=== PATIENT | female | born 1940 | race Caucasian/White ===

== ENCOUNTER 2017-07-31 08:40 | Outpatient (CLI) | payer MEDICARE, BC ==
[~2017-07-31] VITALS: Ht 160 cm; Wt 56.8 kg
--- NOTE | ~2017-07-31 | OP ---
PATIENT NAME: JUVENAL NOLAN MEDICAL RECORD: [id number] :42 LOCATION:D.CAT ADMISSION DATE: SURGEON: NAREN PEREZ MD DATE OF OPERATION: 07/31/2017 PROCEDURES: 1. PTCA stent LAD. 2. Left heart catheterization. 3. Selective coronary angiography. 4. Left ventriculogram. INDICATION: Angina and coronary artery disease. PROCEDURE IN DETAIL: After informed consent was obtained and after detailed explanation of risks, benefits as well as alternative therapies, the patient elected to proceed with angiogram and angioplasty. The right femoral area is prepped and draped in normal sterile fashion. The right femoral artery was cannulated via modified Seldinger technique with placement of 6-Sri [place]ankan sheath. All catheters exchanged through this sheath. FINDINGS: The left ventriculogram was performed in the standard 30-degree QUINTANILLA view reveals good cardiac wall motion throughout all segments. Overall ejection fraction estimated at 60%. SELECTIVE CORONARY ANGIOGRAPHY: 1. Left main showed no significant angiographic disease. 2. Left anterior descending has an 80% stenosis throughout the proximal vessel. 3. Left circumflex shows moderate irregularities, but no flow-limiting stenosis. 4. Right coronary has moderate irregularities, but no flow-limiting stenosis throughout. PTCA STENT OF THE LAD: The stent used is a 3.0 x 22 mm Keith. Result was 0% residual stenosis. OVERALL IMPRESSION: Successful PTCA stent of the LAD going from 80% initial stenosis to 0% residual stenosis. TRANSINT:[id number] Voice Confirmation ID: [id number] DOCUMENT ID: [id number] NAREN PEREZ MD at 1140 CC: [id number] DICTATION DATE: 07/31/17 1145 WIRE SPINNER: 07/31/17 1245 DEP CLI 07/31/17 [place] [id number]
--- NOTE | ~2017-07-31 | HEMODYNAMI ---
PATIENT:JUVENAL NOLAN MEDICAL RECORD: [id number] : 42 LOCATION:D.CAT ADMISSION DATE: 07/31/17 Generatedon:07/31/201711:44 Patient name: JUVENAL AJIMES Patient #: [id number] S SN: : 1940 Date of study: 07/31/2017 Page: Of Hemodynamic Procedure Report Patient Data Patient Demographics Procedure consent was obtained First Name: JUVENAL Gender: Female Last Name: CAROL JAIMES : 1940 Patient #: [id number] Age: 76 year(s) Race: Unknown Additional ID: [id number] Contact details Address: [address] [place] [address] ROAD State: [place] City: [place] Zip code: [address] Past Medical History Allergies Allergen Reaction Date Comments Reported Other allergy 07/31/2017 PCN Admission Admission Data Admission Date: 07/31/2017 Admission Time: 8:40 Procedure Procedure Types Cath Procedure Diagnostic Procedure LHC LHC w/Coronaries PCI Procedure Coronary Stent Coronary Stent Initial Procedure Description Procedure Date Procedure Date: 07/31/2017 Procedure Start Time: 11:22 Procedure End Time: 11:39 Procedure Staff Name Function Priya Nicole RT Scrub Freddy Carcamo RN Nurse Nathaniel Mobley MD Performing Physician Melissa Danielson RT Monitor Procedure Data Cath Procedure Fluoroscopy Diagnostic fluoroscopy Total fluoroscopy Time: 3.2 time: 3.2 min min Diagnostic fluoroscopy Total fluoroscopy dose: 296 dose: 296 mGy mGy Contrast Material Contrast Material Type Amount (ml) Isovue 300 113 Isovue 300 113 Entry Location Entry Primary Successful Side Size Upsize Upsize Entry Closure Locke ccessful Closure Location (Fr) 1 (Fr) 2 (Fr) Remarks Device Remarks Radial Right 6 Fr Mechanical tr artery Short Compression Femoral Right 5 Fr 6 Fr Exoseal artery Short Estimated blood loss: 10 ml Diagnostic catheters Device Type Used For End Catheter Placement DIAGNOSTIC [place] 110cm 5 Procedure Fr catheter ([id number]) MULTIPACK Pigtail 5 Fr LV Angiography catheter MULTIPACK JL 4.0 5Fr Procedure catheter MULTIPACK 3DRC 5Fr Procedure catheter Procedure Complications No complications Procedure Medications Medication Administration Route Dosage Oxygen NC 2 l/min Lidocaine 2% added to field 20 Heparin Flush Bag added to field 2 bags (1000units/500ml NS) 0.9% NaCl I.V. 100 ml/hr Versed I.V. 1 mg Fentanyl I.V. 50 mcg Radial Cocktail added to field 1 syringe (Verapomil 2mg/Nitro 400mcg/Heparin 1500units) Versed I.V. 1 mg Fentanyl I.V. 50 mcg Heparin Bolus I.V. 4000 units Hemodynamics Rest Heart Rate: 69 (bpm) Snapshots Pre Cath Intra NCS Post Cath Vital Signs Time Heart Resp SPO2 etCO2 NIBP (mmHg) Rhythm Pain Sedation Rate (ipm) (%) (mmHg) Status Level (bpm) 11:02:32 77 18 94 0 149/64(123) NSR 0 (11) 10(A) , No pain 11:06:48 71 18 95 0 147/78(127) NSR 0 (11) 10(A) , No pain 11:11:06 71 16 96 0 115/64(95) NSR 0 (11) 10(A) , No pain 11:15:16 64 15 98 33.4 111/55(78) NSR 0 (11) 10(A) , No pain 11:19:22 65 15 98 37.9 114/61(92) NSR 0 (11) 10(A) , No pain 11:23:30 64 14 99 37.1 112/61(86) NSR 0 (11) 9(A) , No pain 11:27:40 67 15 95 35.6 88/54(64) NSR 0 (11) 9(A) , No pain 11:31:42 74 15 97 37.9 100/51(79) NSR 0 (11) 9(A) , No pain 11:35:45 71 16 97 33.4 96/58(75) NSR 0 (11) 9(A) , No pain 11:39:47 73 16 98 40.1 113/57(91) NSR 0 (11) 10(A) , No pain Medications Time Medication Route Dose Verified Delivered Reason Note s Effectiveness by by 11:11:19 Oxygen NC 2 l/min Nathaniel Buffie used for Leandra Carcamo RN procedure 11:11:31 Lidocaine 2% added 20ml Nathaniel Armstrong for local to vial Leandra Mobley MD anesthetic field 11:11:38 Heparin Flush added 2 bags Nathaniel Armstrong used for Bag to Leandra Mobley MD procedure (1000units/500ml field NS) 11:11:47 0.9% NaCl I.V. 100 Nathaniel Buffie Per physician ml/hr Leandra Carcamo RN 11:21:19 Versed I.V. 1 mg Nathaniel Buffie for sedation Leandra Carcamo RN 11:21:25 Fentanyl I.V. 50 mcg Nathaniel Buffie for sedation Leandra Carcamo RN 11:24:34 Radial Cocktail added 1 Nathanielsofi Armstrong for not (Verapomil to syringe Leandra Mobley MD vasodilation used, 2mg/Nitro field radial 400mcg/Hepari loop present 11:24:41 Versed I.V. 1 mg Nathaniel Stoddardie for sedation Leandra Carcamo RN 11:24:45 Fentanyl I.V. 50 mcg Nathaniel Hayes for sedation Leandra Carcamo RN 11:33:04 Heparin Bolus I.V. 4000 Nathaniel Buffie for veri fied units Leandra Carcamo RN anticoagulation with dr mobley Procedure Log Time Note 10:40:17 Melissa Danielson RT(R) sent for patient. Start room use. 10:52:45 Informed consent obtained and on chart 10:53:18 Time tracking: Regular hours 10:53:22 Plan of Care:Hemodynamics will remain stable., Cardiac rhythm will remain stable., Comfort level will be maintained., Respiratory function will remain adequate., Patient/ family verbilizes understanding of procedure., Procedure tolerated without complication., Recovers from procedure without complications.. 10:53:38 Patient received from Pre/Post Procedure Room to CCL 2 Alert and oriented. Tansferred to table in Supine position. 10:53:39 Correct patient and procedure confirmed by team. 10:53:39 Warm blankets applied, and toño hugger turned on for patient comfort. 10:53:40 ECG and BP/O2 sat monitors applied to patient. 11:01:19 Vital chart was started 11:05:25 Baseline sample Acquired. 11:05:29 Rhythm: sinus rhythm 11:05:31 Full Disclosure recording started 11:05:46 H&P Date Dictated: 07/03/2017 Within 30 days and on chart.. 11:05:48 Pre-procedure instructions explained to patient. 11:05:49 Family in waiting room. 11:05:51 Patient NPO since Midnight. 11:06:01 Patient allergic to Other allergyPCN 11:06:06 Was the patient premedicated? Yes 11:06:08 Is patient on blood thinner?Yes 11:06:11 ACC The patient was administered the following blood thiners within the last 24 hours: ACCPlavix 11:06:15 Patient diabetic? No. 11:06:19 Snore? No 11:06:21 Sleep apnea? No 11:06:28 Patient pain scale 0/10 ?. 11:06:35 IV patent on arrival in left antecubital with 0.9% NaCl at O. 11:06:49 Lab results completed and on chart. 11:06:54 Right Radial & Right Groin area was prepped with chlora-prep and draped in sterile fashion 11:06:55 Alarms reviewed by R. N. 11:06:56 Physician paged 11:06:56 Sharps counted by scrub and verified by R.N. 11:09:07 Use device set Radial Dx or PCI 11:11:19 Oxygen 2 l/min NC was administered by Freddy Carcamo RN; used for procedure; 11:11:31 Lidocaine 2% 20ml vial added to field was administered by Nathaniel Mobley MD; for local anesthetic; 11:11:38 Heparin Flush Bag (1000units/500ml NS) 2 bags added to field was administered by Nathaniel Mobley MD; used for procedure; 11:11:47 0.9% NaCl 100 ml/hr I.V. was administered by Freddy Carcamo RN; Per physician; 11:11:59 Zero performed for pressure channel P1 11:12:10 ACIST Syringe (12204) opened to sterile field. 11:12:11 Bag Decanter (2002S) opened to sterile field. 11:12:11 Medline Cath Pack ([id number]) opened to sterile field. 11:12:13 DIAGNOSTIC WIRE .035 260cm J wire (621472) opened to sterile field. 11:12:13 SHEATH 6FR Slender ([id number]) opened to sterile field. 11:12:14 ACIST Hand Control (24022) opened to sterile field. 11:12:15 Tegaderm 4 x 4 (1626W) opened to sterile field. 11:12:15 ACIST Manifold (48401) opened to sterile field. 11:12:16 MBrace Wrist Support ([id number]) opened to sterile field. 11:12:17 NEEDLE Cook 21G 4cm Radial (R11510) opened to sterile field. 11:12:19 TR BAND Standard (QHG33MIG) opened to sterile field. 11:18:15 Physician arrived 11:18:17 --------ALL STOP TIME OUT------ 11:18:18 Final Timeout: patient, procedure, and site verified with staff and physician. All members of the team are in agreement. 11:18:20 Right Radial & Right Groin site verified by team. 11:18:23 Physical assessment completed. ASA score P 2 - A patient with mild systemic disease as per Nathaniel Mobley MD. 11:18:28 Sedation plan: IV Moderate Sedation Medication:Versed, Fentanyl 11::19 Versed 1 mg I.V. was administered by Freddy Carcamo RN; for sedation; ::25 Fentanyl 50 mcg I.V. was administered by Freddy Carcamo RN; for sedation; 11::09 Procedure started. 11:22:19 Local anesthetic to right radial artery with Lidocaine 2% by Nathaniel Mobley MD.INITIAL ACCESS ONLY 11:23:14 A 6 Fr Short sheath was inserted into the Right Radial artery 11:23:28 A DIAGNOSTIC [place] 110cm 5 Fr catheter (754306) was advanced over the wire and used for Procedure. 11:24:11 LV angiography performed. 11:24:34 Radial Cocktail (Verapomil 2mg/Nitro 400mcg/Heparin 1500units) 1 syringe added to field was administered by Nathaniel Mobley MD; for vasodilation; not used, radial loop present 11::41 Versed 1 mg I.V. was administered by Freddy Carcamo RN; for sedation; 11:24:45 Fentanyl 50 mcg I.V. was administered by Freddy Carcamo RN; for sedation; 11:25:07 Catheter removed. ::28 unable to cross over auxillary artery 11:25:45 Use device set Multipack Set 11:25:47 DIAGNOSTIC Multipack 5Fr catheter set (CY1447) opened to sterile field. 11:25:48 SHEATH 5FR Vance (WVL340) opened to sterile field. 11:26:11 Local anesthetic to right femoral artery with Lidocaine 2% by Nathaniel Mobley MD.ADDITIONAL ACCESS 11:26:19 A 5 Fr sheath was inserted into the Right Femoral artery 11:27:15 A MULTIPACK Pigtail 5 Fr catheter was advanced over the wire and used for LV Angiography. 11:28:04 LV gram done using QUINTANILLA 11:28:13 EF : 60 % 11:28:30 Abdominal angiogram w/ runoff was performed. 11:28:43 Right leg runoff performed. 11:29:11 Left leg runoff performed. 11:29:17 Catheter removed. 11:29:30 A MULTIPACK JL 4.0 5Fr catheter was advanced over the wire and used for Procedure. 11:30:40 LCA angiography performed. 11:31:00 SHEATH 6FR Vance (FEK231) opened to sterile field. 11:31:01 INFLATOR Merit BasixCompak (EO8854) opened to sterile field. 11:31:03 Catheter removed. 11:31:12 GUIDE 6FR XBLAD 3.5 catheter ([id number]) opened to sterile field. 11:31:28 A MULTIPACK 3DRC 5Fr catheter was advanced over the wire and used for Procedure. 11:32:07 RCA angiography performed. 11:32:14 Catheter removed. 11:32:20 Proceeding to intervention. 11:32:36 Sheath upsized to a 6 Fr Short. 11:32:52 6 Fr XBLAD 3.5 guide catheter was inserted over the wire 11:33:04 Heparin Bolus 4000 units I.V. was administered by Freddy Carcamo RN; for anticoagulation; verified with dr mobley 11:33:33 CHOICE PT Extra Support 182cm wire ([id number]) opened to sterile field. 11:33:44 extra support wire advanced. 11:33:56 Wire advanced across lesion. 11:36:23 Inflation Number: 1 A FRANCISCO RX 2.5 x 22 stent ([id number]) was prepped and advanced across the Prox LAD. The stent was deployed at 13 [place] for 0:10 (min:sec). 11:36:59 Wire removed. 11:37:01 Guide catheter removed. 11:37:11 Sheath removed intact; hemostasis achieved with Exoseal to the Right Femoral artery. 11:37:20 Sheath removed intact; hemostasis achieved with Mechanical Compression to the Right Radial artery. 11:37:50 Procedure ended.(Physican Out) 11:38:00 Fluoroscopy time 03.20 minutes. 11:38:04 Fluoroscopy dose: 296 mGy 11:38:04 Flurop Dose total: 296 11:38:08 Contrast amount:Isovue 300 113ml. 11:38:13 Contrast amount:Isovue 300 113ml. 11:38:16 Sharps counted by scrub and verified by R.N. 11:38:20 TR band inflated with 10cc of air. 11:38:22 Insertion/operative site no bleeding no hematoma. 11:38:26 Post-op/insertion site Right Femoral artery dressed using a 4 x 4 and Tegaderm. 11:38:32 Post Procedure Pulses reassessed and unchanged 11:38:37 Post-procedure physical assessment completed. ASA score P 2 - A patient with mild systemic disease as per Nathaniel Mobley MD. 11:38:48 Post procedure rhythm: unchanged. 11:38:51 Estimated blood loss: 10 ml 11:38:54 Post procedure instruction explained to patient.Patient verbalizes understanding. 11:39:04 Procedure and supply charges have been captured, reviewed, submitted and are correct. 11:39:04 Procedure type changed to Cath procedure, Diagnostic procedure, LHC, LHC w/Coronaries, PCI procedure, Coronary Stent, Coronary Stent Initial 11:39:35 Procedure Complication : No complications 11:39:38 See physician's report for complete and final results. 11:39:38 Vital chart was stopped 11:39:40 Report given to Pre/Post Procedure Room. 11:39:43 Patient transfered to Pre/Post Procedure Room with Stretcher. 11:39:45 Full Disclosure recording stopped 11:39:45 Procedure ended. 11:39:49 End room use (Document Last) Intervention Summary Intervention Notes Time ActionType Lesion and Equipment Used Action# Pressure Duration Attributes 11:36:23 Place stent Prox LAD FRANCISCO RX 2.5 x 1 13 00:10 22 stent ([id number]) Device Usage Item Name Manufacture Quantity Catalog Number Hospital Part Current M inimal Lot# / Charge Number Stock Stock Serial# Code ACIST Syringe Acist 1 21259 614938 367498 294082 2 0 (20593) Medical Systems Inc Medline Cath Cardinal 1 [id number] 930541 42600 347244 5 Pack Health ([id number]) Bag Decanter Microtek 1 2001S 493034 77329 423817 5 () Medical Inc. SHEATH 6FR Terumo 1 [id number] 711536 559186 852062 4 0 Slender ([id number]) DIAGNOSTIC [facility] 1 697486 762074 926440 235537 3 0 WIRE .035 260cm J wire (640566) ACIST Hand Acist 1 66741 445972 503274 523038 5 Control Medical (17018) Systems Inc ACIST Manifold Acist 1 12959 055196 259683 767113 5 (04426) Medical Systems Inc Tegaderm 4 x 4 3M 1 1626W 832252 393500 272298 5 (1626W) MBrace Wrist Advanced 1 140-0250-00 303133 83409 711755 5 Support Vascular (027870877) Dynamics NEEDLE LendingRobot [facility] 1 R60029 541711 006692 687335 5 21G 4cm Radial (G09038) TR BAND Terumo 1 WSI00-WOF 332605 639605 605508 4 0 Standard (KLQ80MJY) DIAGNOSTIC Terumo 1 40-5013 510453 042788 316725 5 [place] 110cm 5 Fr catheter (193214) DIAGNOSTIC Cardinal 1 SA0287 701201 85146 098653 3 0 Multipack 5Fr Health catheter set (SQ4061) SHEATH 5FR Terumo 1 DTA691 878406 400124 374994 4 0 Vance (IDV341) MULTIPACK Cardinal 1 739738 5 Pigtail 5 Fr Health catheter MULTIPACK JL Cardinal 1 768556 5 4.0 5Fr Health catheter SHEATH 6FR Terumo 1 XKH024 155420 982626 721547 4 0 Vance (XGT786) INFLATOR Merit Merit 1 YW9105 162098 759500 148505 1 5 [employer] (VX2584) GUIDE 6FR Cardinal 1 [id number] 804392 746135 560717 1 0 XBLAD 3.5 Health catheter (67460291) MULTIPACK 3DRC Cardinal 1 362327 5 5Fr catheter Health CHOICE PT [place] 1 [id number] 836119 956378 966260 5 Extra Support Scientific 182cm wire ([id number]) FRANCISCO RX 2.5 x Medtronic 1 [id number] 155691 3153478 126693 5 [id number] 22 stent ([id number]) Signature [place] Stage Time Signature Unsigned Intra-Procedure 07/31/2017 Melissa Danielson 11:42:32 AM RT(R) Signatures Monitor : Melissa Danielson Signature : RT Date : Time : [place] [address] [place] [address]
--- NOTE | ~2017-07-31 | OP ---
PATIENT NAME: JUVENAL NOLAN MEDICAL RECORD: [id number] :42 LOCATION:D.CAT ADMISSION DATE: SURGEON: NAREN PEREZ MD DATE OF OPERATION: 07/31/2017 PROCEDURES: 1. Aortofemoral runoff. 2. Abdominal aortography. INDICATION: Claudication and peripheral vascular disease. PROCEDURE IN DETAIL: After informed consent was obtained and after detailed explanation of risks, benefits as well as alternative therapies, the patient elected to proceed with angiogram. The right femoral area had a preexisting sheath from cardiac intervention. All catheters exchanged through this sheath. FINDINGS: Abdominal aortography was performed. The catheter was pulled down for aortofemoral runoff. Abdominal aortography reveals moderate irregularities of the abdominal aorta. No flow limiting stenosis, no renal artery stenosis. RIGHT LEG: A. Iliac: The common internal and external iliacs have mild irregularities, none greater than 20%, no flow-limiting stenosis. B. Femoral system: The common superficial and deep femoral have moderate irregularities, but no flow-limiting stenosis, none greater than 20%, no flow-limiting stenosis. C. Popliteal and infrapopliteal vessels are mildly diffusely diseased, but there is preserved 3-vessel runoff to the foot. LEFT LEG: A. Iliac: The common internal and external iliacs have mild irregularities, none greater than 20%, no flow-limiting stenosis. B. Femoral system: The common superficial and deep femoral have moderate irregularities, but no flow-limiting stenosis, none greater than 20%, no flow-limiting stenosis. C. Popliteal and infrapopliteal vessels are mildly diffusely diseased, but there is preserved 3-vessel runoff to the foot. OVERALL IMPRESSION: Minimal peripheral vascular disease is present. No flow limiting stenosis, leg pain is non-arterial vascular in etiology. TRANSINT:[id number] Voice Confirmation ID: [id number] DOCUMENT ID: [id number] NAREN PEREZ MD at 1140 CC: [id number] DICTATION DATE: 07/31/17 1145 RAT CULTURIST: 07/31/17 1246 DEP CLI 07/31/17 [place] [address]
[2017-07-31] MEDS ORDERED: OMEPRAZOLE20 M1 PO (09:19)
[2017-07-31] MEDS ORDERED: PLAVIX75 MG PO (09:19)
[2017-07-31] MEDS ORDERED: ZESTRIL20 MG PO (09:20)
[2017-07-31] MEDS ORDERED: CELEXA10 MG PO (09:20)
[2017-07-31 09:32] VITALS: BP 153/68; Ht 160 cm; Wt 56.8 kg
[2017-07-31 09:47] LABS: BASOPHILS 0.2 % (0-2); EOSINOPHILS 1.6 % (0-7); HEMATOCRIT 41.8 % (36.0-48.0); HEMOGLOBIN 14.4 g/dL (12-16); IMMATURE GRANULOCYTES 0.4 % (0-5); LYMPHOCYTES 40.7 % (15-50); MCHC 34.4 g/dL (31.0-37.0); MCV 95.9 fL (80.0-100.0); MEAN PLATELET VOLUME 10.1 fL (7.4-10.4); MONOCYTES 9.6 % (2-11); NEUTROPHILS 47.5 % (40-80); PLATELET COUNT 276 10x3/uL (130-400); RBC 4.36 10x6/uL (4.00-5.40); RDW 12.9 % (11.5-14.5); WBC 5.6 10x3/uL (4.8-10.8)
[2017-07-31 10:06] LABS: ANION GAP 12.8 mmol/L (8-16); CALCIUM 9.6 mg/dL (8.5-10.1); CARBON DIOXIDE 29.5 mmol/L (21.0-32.0); CREATININE - SERUM 0.8 mg/dL (0.6-1.3); POTASSIUM - SERUM 4.3 mmol/L (3.5-5.1)
== END 2017-07-31 16:00 | disposition home or self-care (01) ==
LOC: D.CATH 08:40
PROVIDERS: Internal Medicine Interventional Cardiology
DX: I20.9 Angina pectoris, unspecified (principal); R00.2 Palpitations; R06.02 Shortness of breath; R94.31 Abnormal electrocardiogram [ECG] [EKG]; I70.219 Atherosclerosis of native arteries of extremities with intermittent claudication, unspecified extremity; Z01.812 Encounter for preprocedural laboratory examination
CPT/HCPCS: 93458; C9600

== ENCOUNTER 2017-11-15 00:42 | Emergency (ER) | payer MEDICARE, BC ==
[~2017-11-15] VITALS: Ht 160 cm; Wt 59.1 kg
[~2017-11-15 00:42] MED LIST: CELEXA10 MG PO; OMEPRAZOLE20 M1 PO; PLAVIX75 MG PO; ZESTRIL20 MG PO
[2017-11-15 00:45] VITALS: Ht 160 cm; Wt 59.1 kg
[2017-11-15 01:13] LABS: BASOPHILS 0.3 % (0-2); EOSINOPHILS 2.7 % (0-7); HEMATOCRIT 40.8 % (36.0-48.0); HEMOGLOBIN 14.3 g/dL (12-16); IMMATURE GRANULOCYTES 0.2 % (0-5); LYMPHOCYTES 43.5 % (15-50); MCH 32.6 pg (26.0-34.0); MCV 93.2 fL (80.0-100.0); MEAN PLATELET VOLUME 10.1 fL (7.4-10.4); MONOCYTES 8.4 % (2-11); NEUTROPHILS 44.9 % (40-80); PLATELET COUNT 243 10x3/uL (130-400); RBC 4.38 10x6/uL (4.00-5.40); RDW 12.7 % (11.5-14.5); WBC 5.9 10x3/uL (4.8-10.8)
[2017-11-15 01:18] LABS: APTT 23.4 SECONDS (22.8-39.4); INR 0.95 (0.85-1.17); PROTIME 12.3 SECONDS (11.6-15.0)
[2017-11-15 01:44] LABS: ALBUMIN 3.4 g/dL (3.4-5.0); ANION GAP 16.8 mmol/L (8-16); BILIRUBIN - TOTAL 0.23 mg/dL (0.2-1.3); CALCIUM 9.2 mg/dL (8.5-10.1); CARBON DIOXIDE 23.5 mmol/L (21.0-32.0); CREATININE - SERUM 0.8 mg/dL (0.6-1.3); POTASSIUM - SERUM 3.3 mmol/L (3.5-5.1); PROTEIN - SERUM 7.3 g/dL (6.4-8.2)
[2017-11-15 02:10] VITALS: BP 118/61
== END 2017-11-15 02:11 | disposition home or self-care (01) ==
LOC: D.ER 00:42
PROVIDERS: Family Medicine
DX: S00.93XA Contusion of unspecified part of head, initial encounter (principal); W19.XXXA Unspecified fall, initial encounter; Y93.89 Activity, other specified; Y92.89 Other specified places as the place of occurrence of the external cause; S41.111A Laceration without foreign body of right upper arm, initial encounter; I10 Essential (primary) hypertension; F17.200 Nicotine dependence, unspecified, uncomplicated

== ENCOUNTER → 2018-01-24 08:40 | Outpatient (CLI) | payer MEDICARE, BC ==
[2017-11-15 00:45] VITALS: BMI 23.0
== END | disposition home or self-care (01) ==
LOC: D.MRI 08:40
DX: R42 Dizziness and giddiness (principal)

== ENCOUNTER → 2018-02-05 09:33 | Outpatient (CLI) | payer MEDICARE, BC ==
[2017-11-15 00:45] VITALS: BMI 23.0
== END | disposition home or self-care (01) ==
LOC: D.MRI 09:33
DX: M54.12 Radiculopathy, cervical region (principal)

== ENCOUNTER 2018-02-22 05:30 | Day surgery (SDC) | payer MEDICARE, BC ==
[2018-02-19 15:33] LABS: HEMATOCRIT 42.2 % (36.0-48.0); HEMOGLOBIN 14.7 g/dL (12-16); MCH 33.2 pg (26.0-34.0); MCHC 34.8 g/dL (31.0-37.0); MCV 95.3 fL (80.0-100.0); MEAN PLATELET VOLUME 10.2 fL (7.4-10.4); RBC 4.43 10x6/uL (4.00-5.40); RDW 12.9 % (11.5-14.5)
[~2018-02-22] VITALS: Ht 160 cm; Wt 56.8 kg
[2018-02-22] VITALS (9 sets, daily range): BP systolic 96–123; BP diastolic 42–57; Ht 160 cm; Wt 56.8 kg
--- NOTE | ~2018-02-22 | OP ---
PATIENT NAME: JUVENAL NOLAN MEDICAL RECORD: [id number] :42 LOCATION:D.OPS ADMISSION DATE: SURGEON: ASHLEY CASTANEDA MD DATE OF OPERATION: 02/22/2018 DATE OF SERVICE: 02/22/2018 PREOPERATIVE DIAGNOSES: Disc herniation, osteophyte formation at C6-C7, left. POSTOPERATIVE DIAGNOSES: Disc herniation and osteophyte formation at C6-7, left. PROCEDURE: Anterior cervical discectomy and fusion with separate anterior cervical plate and screws, PEEK interbody cage, bone stem cell allograft, removal of osteophytes microscopic illumination. SURGEON: Ashley Castaneda MD PRIMARY CARE DOCTOR: Keara Hendricks MD DESCRIPTION OF TECHNIQUE: After induction of general endotracheal anesthesia, the patient was positioned supine on the operating table. Neck was prepped and draped in usual sterile fashion. Fluoroscopic x-ray and freer localized the C6-C7 interspace. A 1:100,000 epinephrine and 1% lidocaine was infiltrated in the subcutaneous tissue. A transverse skin incision was carried out from the midline to the sternocleidomastoid muscle. The platysma was divided with Bovie cautery. Using blunt and sharp dissection with Metzenbaum scissors, I proceeded in the avascular plane medial to the carotid sheath. The C6-C7 interspace was identified with fluoroscopic x-ray and a spinal needle. The longus colli muscles were elevated from bodies of C6 and C7 and Dilliner distracting pins were placed in the bodies of C6 and C7 and self-retaining retractors placed deep to the longus colli muscles. The disc space was incised. The disc material was removed with pituitary rongeurs. The endplates were prepared with curettes. Under microscopic illumination, osteophytes were drilled away posteriorly with Midas-Diego drill. Posterior longitudinal ligament was removed with Cloward rongeurs. A disc herniation within the foramen was removed with pituitary rongeurs. Following this, the dura was decompressed well. An 8-mm PEEK interbody cage was placed in the disc space under distraction. Prior to this, it was filled with bone stem cell allograft. A separate Zavation anterior cervical plate and screws was used to span the C6-C7 interspace. A locking cam was tightened down over the screw heads. The wound was irrigated with copious amounts of Ancef irrigant solution. The platysma and subdermal layer was closed with interrupted 3-0 Vicryl suture. The skin was reapproximated with Steri-Strips and benzoin. A sterile dressing was applied to the wound. The patient was awakened in good condition and taken to recovery. All counts were reported as correct. Estimated blood loss was minimal. TRANSINT:[id number] Voice Confirmation ID: [id number] DOCUMENT ID: [id number] OPERATIVE REPORT [id number] JUVENAL NOLAN, ASHLEY SAL at 1504 CC: [id number] DICTATION DATE: 02/22/18 0944 SALES CORRESPONDENCE CLERK: 02/22/[address] [facility] 02/23/18 [place] [address] [place] [address]
[~2018-02-22 05:30] MED LIST changes: +NORCO 10-325 TA1 TAB PO
[2018-02-23] VITALS: BP 123/54
[2018-02-23 04:00] VITALS: BP 121/55
[2018-02-23 12:33] VITALS: BP 153/58
== END 2018-02-23 12:36 | disposition home or self-care (01) ==
LOC: D.OPS 05:30 → D.PAN 07:30 → D.OPS 07:30 → D.MS 10:26 → D.OPS 02-23 12:36
PROVIDERS: Anesthesiology
DX: M50.223 Other cervical disc displacement at C6-C7 level (principal); M25.78 Osteophyte, vertebrae; Z01.812 Encounter for preprocedural laboratory examination

== ENCOUNTER 2018-11-10 14:32 | Inpatient (IN) | payer MEDICARE, BC ==
[2018-11-10] VITALS (13 sets, daily range): BP systolic 85–115; BP diastolic 38–68; Ht 160 cm; Wt 59.1 kg
[~2018-11-10] VITALS: Ht 160 cm; Wt 59.1 kg
--- NOTE | ~2018-11-10 | EC ---
PATIENT:JUVENAL RAYGOZA DATE OF SERVICE: 11/10/18 SEX: F MEDICAL RECORD: [id number] DATE OF : 44 LOCATION:D.M2 D.212 AGE OF PATIENT: 77 ADMISSION DATE: 11/10/18 REFERRING PHYSICIAN: INTERPRETING PHYSICIAN: NAREN MOBLEY MD ECHOCARDIOGRAM REPORT ECHO CHARGES 4 ECHO COMPLETE Date: 11/11/18 CLINICAL DIAGNOSIS: AR ECHOCARDIOGRAPHIC MEASUREMENTS (adult normal given) AC root (d.<3.7cm) 2.8 cm LV Septum d (<1.2 cm> 1.1 cm Valve Excursion 1.2 cm LV Septum (systole) 1.9 cm Left Atria (s.<4.0cm> 2.5 cm LVPW d(<1.2cm) 1.1 cm RV (d.<2.3cm) 2.0 cm LVPW (sytole) 1.9 cm LV diastole(<5.6CM) 4.3 cm MV E-F(>70mm/sec) cm LV systole 2.3 cm LVOT Diameter 1.5 cm MV exc.(>10mm) cm Est.ejection fraction (50-75%) % DOPPLER: LVIT cm/sec A 54.0 cm/sec E 83.0 cm/sec LA cm/sec RVSP 22.0 mmHg LVOT 94.0 cm/sec AOP1/2T m/s Asc. Ao 146 cm/sec RVOT 46.0 cm/sec RA cm/sec PA 60.0 cm/sec AV Gradient Peak 8.5 mmHg AV Mean 4.0 mmHg AV Area 1.3 cm MV Gradient Peak 4.4 mmHg MV Mean 1.5 mmHg MV Area cm COMMENTS: Histotechnologist: Flora OCHOAOE Doctor Of Dental Medicine: 1 Dr. Mobley TAPE# PACS Pericardial Effusion Y DATE OF SERVICE: 11/11/2018 PROCEDURE: Echocardiogram. FINDINGS: 1. Left ventricular chamber size is within normal limits. Left ventricular systolic function is preserved. Ejection fraction estimated at 55%. 2. Left atrium, right atrium, and right ventricular size is within normal limits. 3. Valvular structures have normal structure and motion. ECHOCARDIOGRAM REPORT [id number] JUVENAL RAYGOZA 4. Doppler interrogation reveals only trace tricuspid regurgitation, no other valvular insufficiency or stenosis. Pulmonary systolic pressure is estimated 22 mmHg. 5. No evidence of pericardial effusion or left ventricular thrombus. TRANSINT:[id number] Voice Confirmation ID: [id number] DOCUMENT ID: [id number] NAREN MOBLEY MD CC: [id number] DICTATION DATE: 11/11/18 1107 HOOP MACHINE OPERATOR: 11/11/18 1142 ADM IN [facility] [address] [place] [id number]
--- NOTE | ~2018-11-10 | DS ---
PATIENT:JUVENAL RAYGOZA :44 MEDICAL RECORD: [id number] DISCHARGE SUMMARY ADMISSION DATE: 11/10/18 DISCHARGE DATE: 11/11/18 DISCHARGE DIAGNOSES: 1. Acute anterior myocardial infarction. 2. Percutaneous transluminal coronary angioplasty stent, left anterior descending. 3. Ventricular tachycardia. 4. Hyperlipidemia. 5. Hypertension. 6. Gastroesophageal reflux disease. HOSPITAL COURSE: Mrs. Castanon presents with an acute anterior myocardial infarction, sudden cardiac , underwent successful PTCA stent of the LAD, had an uneventful postop course. No further dysrhythmias, no further anginal chest discomfort, discharged home with the addition of Pravachol and Plavix to her medical regimen. No beta geovanni was undertaken secondary to bradycardia. He will follow up with [facility] in 1 month. TRANSINT:[id number] Voice Confirmation ID: [id number] DOCUMENT ID: [id number] NAREN PEREZ MD CC: [id number] DICTATION DATE: 11/11/18 1643 WOODWORKING MACHINE OPERATOR: 11/12/18 0439 DIS IN 11/11/18 [facility] [address] [place] [address]
--- NOTE | 2018-11-10 14:37 | NUR ---
PT IN VIA EMS WITH C/O CHEST PAIN X 2 HRS.
--- NOTE | 2018-11-10 14:42 | NUR ---
DR. PEREZ TO BEDSIDE.
[2018-11-10 14:45] LABS: BASOPHILS 0.2 % (0-2); EOSINOPHILS 0.7 % (0-7); HEMATOCRIT 37.3 % (36.0-48.0); HEMOGLOBIN 13.4 g/dL (12-16); IMMATURE GRANULOCYTES 0.4 % (0-5); LYMPHOCYTES 44.9 % (15-50); MCH 33.3 pg (26.0-34.0); MCHC 35.9 g/dL (31.0-37.0); MCV 92.8 fL (80.0-100.0); MEAN PLATELET VOLUME 9.9 fL (7.4-10.4); MONOCYTES 7.5 % (2-11); NEUTROPHILS 46.3 % (40-80); PLATELET COUNT 272 10x3/uL (130-400); RBC 4.02 10x6/uL (4.00-5.40); RDW 12.4 % (11.5-14.5); WBC 12.8 10x3/uL (4.8-10.8)
--- NOTE | 2018-11-10 14:52 | NUR ---
LABORER GENERAL TO BEDSIDE.
--- NOTE | 2018-11-10 14:54 | NUR ---
ASA 324 MG GIVEN STONE UNLOADER, MEDICATIONS GIVEN PER ORDER. PT A&O X3, FORM SIGNED. PATIENT TAKEN VIA STRETCHER BY FRYER OPERATOR TEAM.
[2018-11-10 14:55] LABS: APTT 20.9 SECONDS (22.8-39.4); INR 0.97 (0.85-1.17); PROTIME 12.4 SECONDS (11.6-15.0)
[2018-11-10 15:07] LABS: ALBUMIN 3.1 g/dL (3.4-5.0); ALKALINE PHOSPHATASE 68 U/L (46-116); ALT (SGPT) 20 U/L (10-68); BILIRUBIN - TOTAL 0.23 mg/dL (0.2-1.3); CALC OSMOLALITY 268 mosm/kg (275-300); CALCIUM 8.9 mg/dL (8.5-10.1); CARBON DIOXIDE 24.9 mmol/L (21.0-32.0); CHLORIDE - SERUM 99 mmol/L (98-107); CREATININE - SERUM 0.9 mg/dL (0.6-1.3); GLUCOSE 123 mg/dL (74-106); POTASSIUM - SERUM 3.8 mmol/L (3.5-5.1); PROTEIN - SERUM 6.4 g/dL (6.4-8.2); SODIUM 134 mmol/L (136-145); UREA NITROGEN 13 mg/dL (7-18); eGFR NON AFRICAN AMERICAN 65 mL/min (90-120)
[2018-11-10 15:23] LABS: CKMB 0.7 U/L (0.0-3.6); CREATINE KINASE 45 UL (21-215); MAGNESIUM - SERUM 1.5 mg/dL (1.8-2.4)
[2018-11-10 15:24] LABS: TROPONIN-I 0.095 ng/mL (0.000-0.060)
--- NOTE | 2018-11-10 19:11 | NUR ---
BEDSIDE SHIFT REPORT GIVEN BY DEPARTING RN. PT LAYING IN BED WITH EYES CLOSED. STARTLED BY NURSE ENTERING ROOM. AAOX4. DENIES PAIN. PERRLA. PULSES PALPATED T/O. LUNG SOUNDS CLEAR. BS AX4. 2L NC WITH O2 SAT 100%. RT GROIN CATH INSERTION SITE NOTED. NO OOZING, BRUISING, OR HEMATOMA. VSS. ASSESSMENT COMPLETE. SEE FS. SAFETY MEASURES IN PLACE. CBIR.
--- NOTE | 2018-11-10 20:14 | NUR ---
PLACED ON BSC.
--- NOTE | 2018-11-10 22:20 | NUR ---
SLIGHT BRUISING NOTED TO RT GROIN. MARKED. DENIES ANY DISCOMFORT OR COMPLAINTS. WILL CONTINUE TO CLOSELY MONITOR.
--- NOTE | 2018-11-10 22:23 | NUR ---
BP DROP TO 78/38. STAT H&H ORDERED. WILL CALL MD WITH RESULTS.
[2018-11-10 22:45] LABS: HEMATOCRIT 34.5 % (36.0-48.0)
--- NOTE | 2018-11-10 22:50 | NUR ---
DR. PEREZ CALLED WITH LAB RESULTS. ORDERS TO KEEP FEMSTOP ON FOR TWO HOURS. WILL CONTINUE TO CLOSELY MONITOR.
--- NOTE | 2018-11-10 23:20 | NUR ---
REASSESSMENT COMPLETE. NO CHANGES NOTED. VSS. SAFETY MEASURES IN PLACE. CBIR.
[2018-11-11] VITALS (13 sets, daily range): BP systolic 95–136; BP diastolic 43–74
--- NOTE | 2018-11-11 01:22 | NUR ---
FEMSTOP REMOVED PER MD ORDER.
--- NOTE | 2018-11-11 02:16 | NUR ---
SMALL AMOUNT OF BRUISING NOTED. MARKED AND TIMED. PT TOLERATING WELL. ASLEEP SHOWING NO SS OF DISTRESS.
--- NOTE | 2018-11-11 03:52 | NUR ---
REASSESSMENT COMPLETE. NO CHANGES NOTED IN PT CONDITION. ASLEEP SHOWING NO SS OF DISTRESS. VSS. SAFETY MEASURES IN PLACE. CBIR.
--- NOTE | 2018-11-11 09:50 | HP ---
PATIENT: JUVENAL RAYGOZA MEDICAL RECORD: [id number] ACCOUNT: [id number] LOCATION:[facility] : 44 ADMISSION DATE: 11/10/18 PCP: FIDEL GARCIA MD HISTORY AND PHYSICAL EXAMINATION DIAGNOSES: 1. Acute lateral myocardial infarction. 2. Coronary artery disease. 3. Previous PTCA and stent. HISTORY OF PRESENT ILLNESS: Mrs. Castanon presents with one hour of chest pain, found to have acute ST elevation myocardial infarction. She continues to have chest pain. She had PTCA and stent one year ago. She is currently not on Plavix. PHYSICAL EXAMINATION: GENERAL APPEARANCE: Well-nourished, well-developed, appears stated age. Level of distress, comfortable. PSYCHIATRIC: Mental status, alert, normal affect. Orientation, oriented to time, place and person. EYES: Lids and conjunctiva, noninjected. No discharge, no pallor. ENT: Lips, teeth, gums, normal dentition. Oropharynx, no cyanosis, no pallor. NECK: Carotid arteries, bilateral normal upstroke, no bruits, no thrills. JUGULAR VEINS: No jugular venous pressure or distention. CERVICAL LYMPH NODES: Nontender, nonenlarged. THYROID: Not enlarged. Nontender. No nodules. LUNGS: Respiratory effort, unlabored. CHEST: Normal curvature. No thoracic deformity. No chest wall tenderness. Percussion, resonant. Auscultation, clear. No wheezes, no rales, no rhonchi. CARDIOVASCULAR: Precordial exam, nondisplaced. No heaves or pericardial thrills. Rate and rhythm, regular. Heart sounds, normal S1, normal S2. No S3, no gallop, no rub. Systolic murmur, not heard. Diastolic murmur, not heard. EXTREMITIES: No cyanosis, no edema. Peripheral pulses, full and equal in all extremities, except as noted. No bruits appreciated. ABDOMEN: Soft, nondistended. Normal aorta. No bruit. Nontender. No masses. Liver, nontender, no hepatomegaly. Spleen, nontender, no splenomegaly. MUSCULOSKELETAL: No joint tenderness. No joint swelling. No erythema. NEUROLOGICAL: Normal gait, normal strength, normal tone. SKIN: Warm and dry. OVERALL IMPRESSION: Acute anterolateral myocardial infarction. We will proceed with IV Integrilin, IV heparin, p.o. Plavix, and emergent cardiac catheterization. Further care depends upon results of the catheterization. TRANSINT:[id number] Voice Confirmation ID: [id number] DOCUMENT ID: [id number] HISTORY AND PHYSICAL [id number] JUVENAL RAYGOZA JEFFREY MD at 0950 CC: [id number] DICTATION DATE: 11/10/18 1439 LABELING ASSOCIATE: 11/10/18 1603 ADM IN [id number] [place] [address]
--- NOTE | 2018-11-11 09:50 | OP ---
PATIENT NAME: JUVENAL RAYGOZA MEDICAL RECORD: [id number] :44 LOCATION:[facility] ADMISSION DATE:11/10/18 SURGEON: NAREN PEREZ MD DATE OF OPERATION: 11/10/2018 PROCEDURES: 1. PTCA and stent, LAD. 2. Left heart catheterization. 3. Selective coronary angiography. 4. Left ventriculogram. INDICATION: Acute anterolateral myocardial infarction. PROCEDURE IN DETAIL: After informed consent was obtained with detailed description of risks and benefits as well as alternative therapies, the patient elected to proceed with angiogram and angioplasty. The right femoral area was prepped and draped in normal sterile fashion. The right femoral artery was cannulated via modified Seldinger technique with placement of 6-[place] sheath. All catheters were exchanged through this sheath. FINDINGS: Left ventriculogram performed in standard 30-degree [place] view reveals anteroapical hypokinesis. Ejection fraction is still preserved at 50%. SELECTIVE CORONARY ANGIOGRAPHY: 1. Left main is with no significant angiographic disease. 2. Left anterior descending is totally occluded in the proximal vessel. 3. Left circumflex has moderate irregularities, but no flow-limiting stenosis. 4. Right coronary has moderate irregularities, but no flow-limiting stenosis. PTCA AND STENT OF THE LAD: Stents used were 2.5 and 3.5, both 22 mm Integrity stents. Result was 0% residual stenosis. OVERALL IMPRESSION: Successful PTCA and stent of the LAD, going from 100% initial stenosis to 0% residual with congregational of LENIN 3 flow. TRANSINT:[id number] Voice Confirmation ID: [id number] DOCUMENT ID: [id number] NAREN PEREZ MD at 0950 CC: [id number] DICTATION DATE: 11/10/18 1534 PEA VINER MECHANIC: 11/10/18 1804 [place] [address]
--- NOTE | 2018-11-11 10:38 | NUR ---
1030 PT TO ROOM 2122. REPORT GIVEN TO LUCERO RAMIREZ.
--- NOTE | 2018-11-11 10:39 | NUR ---
0700 RECIEVED PT IN BED. VSS. R GROIN BRUISING MARKED. CATH SITE SOFT, NO HEMATOMA. PIV TO R WRIST, L AC SALINE LOCKED. 0900 CALLED [facility], ORDERS TO TRANSFER TO PCU.
[2018-11-11] MEDS ORDERED: PEPCID AC20 MG PO (11:15)
--- NOTE | 2018-11-11 12:53 | MORECARE ---
CASE MANAGEMENT DISCHARGE SUMMARY PATIENT: JUVENAL RAYGOZA UNIT: [id number] ADM DATE: 11/10/18 AGE: 77 : 42 SEX: F ROOM/BED: D.9492 AUTHOR: CHRISTINA,DOC PHYSICIAN: REFERRING PHYSICIAN: NAREN PEREZ MD DATE OF SERVICE: 11/11/18 Discharge Plan Patient Name: JUVENAL RAYGOZA Facility: [facility]:[place] : 1940 Planned Disposition: Home Anticipated Discharge Date: Discharge Date: Expected LOS: Initial Reviewer: [email or web address] Initial Review Date: 11/11/2018 Generated: 11/11/18 1:53 pm Comments DCP- Discharge Planning Updated by [email or web address]: Matilda Dupont on 11/11/18 11:[address] Patient Name: JUVENAL RAYGOZA Admission Status: ER Accout number: [id number] Admission Date: 11-10-2018 : 1940 Admission Diagnosis: Attending: JAMARCUS PEREZ Current LOS: 1 Anticipated DC Date: Planned Disposition: Home Primary Insurance: MEDICARE A & B Discharge Planning Comments: M met with patient to complete initial dc planning assessment. CM educated patient on the CM role and verbal consent given by patient to complete assessment. CM verified patient's address, phone number, and emergency contact phone numbers. Patient lives at home with family and reports she is independent in her care. At discharge patient plans to return home and feels this is a safe discharge. CM discussed availability of home health, rehab services, and medical equipment. Patient denied known discharge needs at this time.. CM will continue to follow and will assist as needed with dc plans/needs. Calendering Supervisor: Matilda Dupont DCPIA - Discharge Planning Initial Assessment Updated by [email or web address]: Matilda Dupont on 11/11/18 12:52 pm * Is the patient Alert and Oriented? Yes * How many steps to enter\exit or inside your home? * PCP Eladio * Pharmacy [facility] * Preadmission Environment Home with Family * ADLs Independent * List name and contact numbers for known caregivers / representatives who currently or will assist patient after discharge: spouse Nate [phone] * Additional services required to return to the preadmission environment? No * Can the patient safely return to the preadmission environment? Yes * Has this patient been hospitalized within the prior 30 days at any hospital? No Patient Name: JUVENAL RAYGOZA Page [phone] at 1253 All edits/amendments must be made on the electronic document DICTATION DATE: 11/11/181252 GREETING CARD WRITER: LESLIE 11/11/18 1253 RPT#: [id number] DC DATE: STATUS: ADM IN [facility] [address] [place] [address] END OF REPORT
[2018-11-11] MEDS ORDERED: PLAVIX75 MG PO (17:12)
[2018-11-11] MEDS ORDERED: PRAVACHOL20 MG PO (17:13)
--- NOTE | 2018-11-12 08:37 | MORECARE ---
CASE MANAGEMENT DISCHARGE SUMMARY PATIENT: JUVENAL RAYGOZA UNIT: [id number] ADM DATE: 11/10/18 AGE: 77 : 42 SEX: F ROOM/BED: D.6612 AUTHOR: CHRISTINA,DOC PHYSICIAN: REFERRING PHYSICIAN: NAREN PEREZ MD DATE OF SERVICE: 11/12/18 Discharge Plan Patient Name: JUVENAL RAYGOZA Facility: [facility]:[place] : 1940 Planned Disposition: Home Anticipated Discharge Date: 11/11/18 Discharge Date: 11/11/2018 Expected LOS: 1 Initial Reviewer: ROQUE Initial Review Date: 11/11/2018 Generated: 11/12/18 9:37 am DCP- Discharge Planning Updated by [email or web address]: Matilda Dupont on 11/11/18 11:[address] Patient Name: JUVENAL RAYGOZA Admission Status: ER Accout number: [id number] Admission Date: 11-10-2018 : 1940 Admission Diagnosis: Attending: JAMARCUS PEREZ Current LOS: 1 Anticipated DC Date: Planned Disposition: Home Primary Insurance: MEDICARE A & B Discharge Planning Comments: M met with patient to complete initial dc planning assessment. CM educated patient on the CM role and verbal consent given by patient to complete assessment. CM verified patient's address, phone number, and emergency contact phone numbers. Patient lives at home with family and reports she is independent in her care. At discharge patient plans to return home and feels this is a safe discharge. CM discussed availability of home health, rehab services, and medical equipment. Patient denied known discharge needs at this time.. CM will continue to follow and will assist as needed with dc plans/needs. Heat Transfer Technician: Matilda Dupont DCPIA - Discharge Planning Initial Assessment Updated by [email or web address]: Matilda Dupont on 11/11/18 12:52 pm * Is the patient Alert and Oriented? Yes * How many steps to enter\exit or inside your home? * PCP Eladio * Pharmacy [facility] * Preadmission Environment Home with Family * ADLs Independent * List name and contact numbers for known caregivers / representatives who currently or will assist patient after discharge: spouse Ray [phone] * Additional services required to return to the preadmission environment? No * Can the patient safely return to the preadmission environment? Yes * Has this patient been hospitalized within the prior 30 days at any hospital? No Last DP export: 11/11/18 11:53 am Patient Name: JUVENAL RAYGOZA Page [phone] at 0837 All edits/amendments must be made on the electronic document DICTATION DATE: 11/12/18835 FREIGHT ROUTER: LESLIE 11/12/18835 RPT#: [id number] DC DATE:11/11/18 STATUS: DIS IN [facility] [address] [place] [address] END OF REPORT
== END 2018-11-11 18:51 | disposition home or self-care (01) | DRG 249 ==
LOC: D.ER → D.CATH 14:32 → D.ER 14:58 → EDSTATUS 15:03 → D.CVICU 15:50 → D.CATH 15:51 → D.CVICU 15:52 → D.M2 11-11 10:42
PROVIDERS: Family Medicine; ADMIT Internal Medicine Interventional Cardiology; ATTEND Internal Medicine Interventional Cardiology
PROC: B2111ZZ Fluoroscopy of Multiple Coronary Arteries using Low Osmolar Contrast (ICD-10-PCS; 2018-11-10)
PROC: B2151ZZ Fluoroscopy of Left Heart using Low Osmolar Contrast (ICD-10-PCS; 2018-11-10)
PROC: 02703EZ Dilation of Coronary Artery, One Artery with Two Intraluminal Devices, Percutaneous Approach (ICD-10-PCS; principal; 2018-11-10 15:00)
PROC: 4A023N7 Measurement of Cardiac Sampling and Pressure, Left Heart, Percutaneous Approach (ICD-10-PCS; 2018-11-10 15:00)
DX: I21.29 ST elevation (STEMI) myocardial infarction involving other sites (principal); I47.2 Ventricular tachycardia; E78.5 Hyperlipidemia, unspecified; I10 Essential (primary) hypertension; K21.9 Gastro-esophageal reflux disease without esophagitis; I25.119 Atherosclerotic heart disease of native coronary artery with unspecified angina pectoris; Z95.5 Presence of coronary angioplasty implant and graft